=== PATIENT | male | born 1955 | race Caucasian/White ===

== ENCOUNTER → 2016-09-03 | Outpatient (CLI) | payer OTHER ==
[~2016-09-03] MED LIST: ALEVE220 MG PO; AMBIEN10 MG PO; ASPIRIN EC81 MG PO; DIOVAN160 MG PO; TOPROL XL50 MG PO
== END | disposition disaster alternative care site (69) ==
LOC: GRAD 14:15
DX: M54.2 Cervicalgia (principal); M50.223 Other cervical disc displacement at C6-C7 level; M48.02 Spinal stenosis, cervical region

== ENCOUNTER → 2016-09-19 | Outpatient (CLI) | payer OTHER ==
[2016-09-19 14:49] LABS: BASOPHIL # 0.1 K/uL (0.0-0.2); BASOPHIL % 1.1 %; EOSINOPHIL # 0.2 K/uL (0.0-0.5); EOSINOPHIL % 3.2 %; HEMATOCRIT 41.6 % (37.0-53.0); HEMOGLOBIN 14.4 g/dL (11.0-16.0); IMMATURE GRANULOCYTE % 0.3 %; LYMPHOCYTE # 2.3 K/uL (0.8-4.0); LYMPHOCYTE % 30.2 %; MCH 31.9 pg (27.0-34.0); MCHC 34.6 gm/dL (32.0-36.5); MCV 92.2 fl (83.0-98.0); MONOCYTE # 0.6 K/uL (0.0-1.0); MONOCYTE % 8.3 %; MPV 10.8 fl (9.4-12.4); NEUTROPHIL # (ANC) 4.2 K/uL (1.4-9.0); NEUTROPHIL % 56.9 %; NRBC % 0 /100WBC (0-0.00); PLATELET COUNT 171 K/uL (150-450); RBC 4.51 M/uL (3.50-5.50); RDW-CV 12.7 % (11.9-14.6); WBC 7.5 K/uL (4.0-11.0)
== END | disposition disaster alternative care site (69) ==
LOC: GOPD 09-10 10:30
PROVIDERS: Neurological Surgery
PROC: 3E0R33Z Introduction of Anti-inflammatory into Spinal Canal, Percutaneous Approach (ICD-10-PCS; principal; 2016-09-19)
PROC: 3E0R3BZ Introduction of Anesthetic Agent into Spinal Canal, Percutaneous Approach (ICD-10-PCS; 2016-09-19)
DX: M47.22 Other spondylosis with radiculopathy, cervical region (principal)
CPT/HCPCS: J1100